=== PATIENT | male | born 1990 | race Hispanic/Latino ===

== ENCOUNTER 2017-02-21 04:26 | Emergency (ER) | payer SELFPAY ==
[~2017-02-21] VITALS: Ht 167.6 cm; Wt 156.6 kg
[~2017-02-21 04:26] MED LIST: NAPROSYN375 MG PO
[2017-02-21] MEDS ORDERED: LISINOPRIL20 MG PO (04:35)
[2017-02-21] MEDS ORDERED: AMOXICILLIN500 MG PO (05:30)
[2017-02-21 05:47] VITALS: BP 157/93
== END 2017-02-21 05:48 | disposition home or self-care (01) | DRG 153 ==
LOC: ED 04:26
DX: H66.91 Otitis media, unspecified, right ear (principal); I10 Essential (primary) hypertension

== ENCOUNTER 2019-08-13 13:01 | Emergency (ER) | payer OTHER ==
[~2019-08-13] VITALS: Ht 167.6 cm; Wt 163.0 kg
[~2019-08-13 13:01] MED LIST changes: +AMOXICILLIN500 MG PO; +LISINOPRIL20 MG PO
[2019-08-13 13:57] LABS: URINE BILIRUBIN - DIPSTICK NEGATIVE (NEGATIVE); URINE BLOOD DIPSTICK TRACE-INTACT (NEGATIVE); URINE COLOR YELLOW; URINE GLUCOSE - DIPSTICK NEGATIVE (NEGATIVE); URINE KETONE NEGATIVE (NEGATIVE); URINE LEUK ESTERASE NEGATIVE (NEGATIVE); URINE NITRITE - DIPSTICK NEGATIVE (Negative); URINE PH 5.5 (4.5-8.0); URINE PROTEIN - DIPSTICK 30 mg/dL (NEG-TRACE); URINE SPECIFIC GRAVITY >=1.030; URINE UROBILINOGEN - DIPSTICK 0.2 E.U./dL (0.2)
[2019-08-13 13:58] LABS: HEMATOCRIT 47.3 % (39.0-50.0); HEMOGLOBIN 15.3 g/dl (14.0-18.0); IMMATURE GRANULOCYTES 0.7 % (0.0-5.0); MEAN CELL VOLUME 79.5 fL CALC (80.0-100.0); MEAN CORPUSCULAR HGB 25.7 pG CALC (26.0-32.0); MEAN CORPUSCULAR HGB CONC 32.3 g/L CALC (32.0-36.0); NEUT# 5.17 thou/uL (1.82-7.42); RED BLOOD COUNT 5.95 mill/uL (4.70-6.10); RED CELL DISTRI WIDTH 13.5 % (11.5-15.5)
[2019-08-13 14:17] LABS: URINE SQUAMOUS EPITHELIAL CELL FEW EPI/hpf (0-FEW)
[2019-08-13 14:33] LABS: ALBUMIN 4.5 g/dL (3.2-5.0); ALKALINE PHOSPHATASE 118 u/l (38-126); AMYLASE 45 u/l (30-110); ANION GAP 15 (6-22 (CALC)); BILIRUBIN, TOTAL 0.4 mg/dL (0.0-1.4); BUN 12 mg/dL (9-20); BUN/CREATININE RATIO 16 (12-20 (CALC)); CARBON DIOXIDE 24 mmol/l (22-30); CHLORIDE 104 mmol/l (95-108); CREATININE 0.7 mg/dL (0.7-1.3); GFR > 60 ML/MIN (>=60 (CALC)); GFR FOR AFR.AMER. > 60 ML/MIN (>=60 (CALC)); LIPASE 68 u/l (23-300); POTASSIUM 3.7 mmol/l (3.5-5.1); SGOT/AST 41 u/l (17-59); SODIUM 139 mmol/l (137-146); TOTAL PROTEIN 8.2 g/dL (6.3-8.2)
[2019-08-13 16:50] VITALS: BP 155/78
== END 2019-08-13 17:00 | disposition home or self-care (01) ==
LOC: ED 13:01
DX: R10.11 Right upper quadrant pain (principal); R10.13 Epigastric pain; R19.7 Diarrhea, unspecified; E11.9 Type 2 diabetes mellitus without complications; I10 Essential (primary) hypertension

== ENCOUNTER 2019-10-12 | Emergency (ER) | payer MEDICAID ==
[2019-10-12] MEDS ORDERED: LOSARTAN POTASS25 MG PO (09:07)
[2019-10-12] MEDS ORDERED: HYDROCHLOROT25 MG PO (09:07)
[2019-10-12 09:37] LABS: URINE BILIRUBIN - DIPSTICK NEGATIVE (NEGATIVE); URINE BLOOD DIPSTICK TRACE-INTACT (NEGATIVE); URINE COLOR YELLOW; URINE GLUCOSE - DIPSTICK NEGATIVE (NEGATIVE); URINE KETONE NEGATIVE (NEGATIVE); URINE LEUK ESTERASE NEGATIVE (NEGATIVE); URINE NITRITE - DIPSTICK NEGATIVE (Negative); URINE PROTEIN - DIPSTICK 30 mg/dL (NEG-TRACE); URINE UROBILINOGEN - DIPSTICK 0.2 E.U./dL (0.2)
[2019-10-12 09:39] LABS: URINE RBC 0-2 RBC/hpf (0-5); URINE WBC 0-2 WBC/hpf (0-5)
[2019-10-12 09:41] LABS: HEMATOCRIT 46.4 % (39.0-50.0); HEMOGLOBIN 15.1 g/dl (14.0-18.0); IMMATURE GRANULOCYTES 0.7 % (0.0-5.0); MEAN CELL VOLUME 79.2 fL CALC (80.0-100.0); MEAN CORPUSCULAR HGB 25.8 pG CALC (26.0-32.0); MEAN CORPUSCULAR HGB CONC 32.5 g/L CALC (32.0-36.0); NEUT# 4.64 thou/uL (1.82-7.42); RED BLOOD COUNT 5.86 mill/uL (4.70-6.10); RED CELL DISTRI WIDTH 13.4 % (11.5-15.5)
[2019-10-12 10:05] LABS: ALBUMIN 4.4 g/dL (3.2-5.0); ALKALINE PHOSPHATASE 117 u/l (38-126); ANION GAP 17 (6-22 (CALC)); BILIRUBIN, TOTAL 0.5 mg/dL (0.0-1.4); BUN 11 mg/dL (9-20); BUN/CREATININE RATIO 16 (12-20 (CALC)); CARBON DIOXIDE 23 mmol/l (22-30); CHLORIDE 100 mmol/l (95-108); CREATININE 0.7 mg/dL (0.7-1.3); GFR > 60 ML/MIN (>=60 (CALC)); GFR FOR AFR.AMER. > 60 ML/MIN (>=60 (CALC)); LIPASE 61 u/l (23-300); POTASSIUM 3.8 mmol/l (3.5-5.1); SGOT/AST 34 u/l (17-59); SODIUM 136 mmol/l (137-146)
== END 2019-10-12 12:02 | disposition home or self-care (01) | DRG 392 ==
PROVIDERS: Family Medicine
DX: R10.11 Right upper quadrant pain (principal); I10 Essential (primary) hypertension; E11.9 Type 2 diabetes mellitus without complications

== ENCOUNTER 2019-12-15 | Emergency (ER) | payer MEDICAID ==
[~2019-12-15] MED LIST changes: +HYDROCHLOROT25 MG PO; +LOSARTAN POTASS25 MG PO
[2019-12-15] MEDS ORDERED: AMOXICILLIN875 MG PO (15:25)
[2019-12-15] MEDS ORDERED: TAM75CAP PO (15:25)
== END 2019-12-15 15:35 | disposition home or self-care (01) ==
DX: J10.1 Influenza due to other identified influenza virus with other respiratory manifestations (principal); I10 Essential (primary) hypertension; E11.9 Type 2 diabetes mellitus without complications

== ENCOUNTER 2020-09-25 22:28 | Emergency (ER) | payer MEDICAID ==
[~2020-09-25] VITALS: Ht 167.6 cm; Wt 163.0 kg
[~2020-09-25 22:28] MED LIST changes: +AMOXICILLIN875 MG PO; +TAM75CAP PO
[2020-09-26 00:32] LABS: HEMATOCRIT 44.8 % (39.0-50.0); HEMOGLOBIN 14.3 g/dl (14.0-18.0); IMMATURE GRANULOCYTES 1.1 % (0.0-5.0); MEAN CORPUSCULAR HGB 25.5 pG CALC (26.0-32.0); MEAN CORPUSCULAR HGB CONC 31.9 g/dL CAL (32.0-36.0); NEUT# 5.1 thou/uL (1.82-7.42); RED BLOOD COUNT 5.6 mill/uL (4.70-6.10); RED CELL DISTRI WIDTH 13.6 % (11.5-15.5)
[2020-09-26 01:37] VITALS: BP 189/93
--- NOTE | 2020-09-27 10:22 | NUR ---
PER KEITH WOO RN, PT NOTIFIED OF POSITIVE COVID RESULTS. ADVISED PATIENT TO QUARANTINE UNTIL CONTACTED BY [facility] [place]. PLEASE RETURN FOR ANY DIFFICULTY BREATHING OR ANY OTHER NEEDS. PT VERBALIZED UNDERSTANDING.
== END 2020-09-26 01:39 | disposition home or self-care (01) ==
LOC: ED 22:28
PROVIDERS: Family Medicine
DX: U07.1 COVID-19 (principal); R52 Pain, unspecified; I10 Essential (primary) hypertension; E11.9 Type 2 diabetes mellitus without complications

== ENCOUNTER 2023-02-25 10:53 | Emergency (ER) | payer MEDICAID ==
[~2023-02-25] VITALS: Ht 167.6 cm; Wt 158.0 kg
[2023-02-25] VITALS (7 sets, daily range): BP systolic 111–137; BP diastolic 60–91
== END 2023-02-25 12:48 | disposition home or self-care (01) ==
LOC: ED 10:53
DX: M79.671 Pain in right foot (principal); I10 Essential (primary) hypertension; E11.9 Type 2 diabetes mellitus without complications; M77.31 Calcaneal spur, right foot

== ENCOUNTER 2023-04-27 07:19 | Emergency (ER) | payer OTHER, MEDICAID ==
[~2023-04-27] VITALS: Ht 167.6 cm; Wt 142.8 kg
[2023-04-27] VITALS (10 sets, daily range): BP systolic 134–186; BP diastolic 95–113
[2023-04-27] MEDS ORDERED: TRULICITY4.5 MG/0.5 (07:39)
[2023-04-27] MEDS ORDERED: LOSARTAN POTAS100 MG PO (07:40)
[2023-04-27] MEDS ORDERED: FARXIGA10 MG (07:40)
[2023-04-27] MEDS ORDERED: LOPRESSOR25 M1 PO (09:21)
== END 2023-04-27 10:07 | disposition home or self-care (01) | DRG 923 ==
LOC: ED 07:19
DX: Z04.1 Encounter for examination and observation following transport accident (principal); I10 Essential (primary) hypertension; E11.9 Type 2 diabetes mellitus without complications; Z79.85 Long-term (current) use of injectable non-insulin antidiabetic drugs

== ENCOUNTER 2023-11-17 19:26 | Emergency (ER) | payer OTHER ==
[~2023-11-17] VITALS: Ht 167.6 cm; Wt 139.0 kg
[~2023-11-17 19:26] MED LIST changes: +FARXIGA10 MG; +LOPRESSOR25 M1 PO; +LOSARTAN POTAS100 MG PO; +TRULICITY4.5 MG/0.5
[2023-11-17] MEDS ORDERED: LIDOcaine HCl 1% (Local Anesth.) 20 ML VIAL STI STA (19:40)
[2023-11-17] MEDS ORDERED: POVIDONE IODINE 0.5 OZ/BTL TOP ONE (19:40)
[2023-11-17] MEDS ORDERED: Diph, Acellular Pertussis, Tet 0.5 ML/VIAL (Tdap) SDV IM ONE (19:40)
[2023-11-17] MEDS ORDERED: NEOMYCIN-BACITRACIN-POLYMYXIN 0.5 GM/PAK PAK TOP ONE (19:40)
[2023-11-17] MEDS ORDERED: SODIUM CHLORIDE 500 ML BTL IR ONE (19:40)
[2023-11-17] MEDS ORDERED: KEFLEX500 MG PO (20:11)
[2023-11-17 20:42] VITALS: BP 123/88
[2023-11-17 20:44] VITALS: BP 123/88
== END 2023-11-17 20:46 | disposition home or self-care (01) ==
LOC: ED 19:26
DX: S51.812A Laceration without foreign body of left forearm, initial encounter (principal); E11.9 Type 2 diabetes mellitus without complications; E66.9 Obesity, unspecified; W26.0XXA Contact with knife, initial encounter; Z79.85 Long-term (current) use of injectable non-insulin antidiabetic drugs; Z79.84 Long term (current) use of oral hypoglycemic drugs